=== PATIENT | female | born 1995 | race African-American/Black ===

== ENCOUNTER 2024-11-05 18:10 | Day surgery (SDC) | payer MEDICAID, SELFPAY ==
[2024-11-05] VITALS (8 sets, daily range): BP systolic 96–112; BP diastolic 66–76; PULSE 69–100; RESP 14–18; TEMP 36.4–36.7; O2SAT 98–100; BMI 23.8
--- NOTE | 2024-11-05 18:39 | XR_ITS ---
Examination: OB Transvaginal ultrasound of the pelvis, complete Technique: Transvaginal sonographic images pelvis performed using lawrence scale imaging Exam date and time: November 05, 2024 1927 hours INDICATIONS: Heavy vaginal bleeding beginning 2 days ago FINDINGS: Uterus 9.3 cm intrauterine gestational sac 1.8 cm corresponding to 6 weeks 5 days gestational age Yolk sac No pole, no cardiac activity Right ovary obscured by bowel gas Left ovary 3.7 cm arterial flow IMPRESSION: Empty intrauterine gestational sac corresponding to 6 weeks 5 days gestational age Recommend short term follow-up transvaginal pelvic sonography to exclude spontaneous in progress.
--- NOTE | 2024-11-05 18:45 | PD.EDVAGBL ---
ED OB Contraction Preg RMI/HPI General Chief complaint: Abdominal Pain Stated complaint: 10WK PREG AND IS HAVING MISSCARRAGE SENT BY OB FOR Time Seen by Provider: 11/05/24 18:38 Arrival date/time: 11/05/24 18:10 28F at approximately 10 weeks and with history of psych presents to ED with 2 days of heavy vaginal bleeding and pelvic pain. Patient was at [facility] yesterday where she was told she was having a miscarriage due to blighted ovum. Patient was seen by PCP Dr. Herman at [facility] who states patient needs D&C due to amount of bleeding, which is about 2-3 pads/hour. Limitations: no limitations Related Data Home Medications ?Medication ?Instructions ?Recorded ?Confirmed duloxetine 30 mg capsule,delayed 1 cap PO QAM 11/17/21 03/23/22 release gabapentin 300 mg capsule 1 cap PO TID 11/17/21 03/23/22 hydroxyzine pamoate 50 mg capsule 1 cap PO TID PRN Anxiety 11/17/21 03/23/22 trazodone 100 mg tablet 1 tab PO HS 11/17/21 03/23/22 Allergies Allergy/AdvReac Type Severity Reaction Status Date / Time No Known Allergies Allergy Verified 11/05/24 18:14 Review of Systems Review of Systems Systems Reviewed: All systems reviewed, normal except as documented Constitutional Constitutional: Reports system reviewed and no additional complaints, except as documented, Reports as per HPI, Reports chills, Reports fever(s) and Denies headache(s) ENT Ears, Nose, Mouth, and Throat: Denies disequilibrium and Denies headache(s) Cardiovascular Cardiovascular: Reports system reviewed and no additional complaints, except as documented, Denies chest pain and Denies dyspnea Respiratory Respiratory: Reports system reviewed and no additional complaints, except as documented, Denies cough and Denies dyspnea Gastrointestinal Gastrointestinal: Reports system reviewed and no additional complaints, except as documented, Reports as per HPI, Denies abdominal pain, Reports nausea and Reports vomiting Genitourinary Genitourinary: Reports as per HPI, Reports abnormal vaginal bleeding and Reports pelvic pain Neurologic Neurologic: Reports system reviewed and no additional complaints, except as documented, Denies confusion, Denies disequilibrium and Denies headache(s) Psychiatric Psychiatric: Denies confusion Past Medical History Past Medical History NEUROLOGIC: Positive Neurological Disorders, Seizures and Epilepsy CARDIAC: Negative Cardiac Disorders or Congestive Heart Failure RESPIRATORY: Negative Chronic Obstructive Pulmonary Disease (COPD) or Asthma GASTROINTESTINAL: Negative Gastrointestinal Disorders GENITOURINARY: Negative Genitourinary Disorders or Renal Disease REPRODUCTIVE: Positive Previous Pregnancies MUSCULOSKELETAL: Negative Musculoskeletal Disorders ENDOCRINE: Negative Endocrine Disorders, Diabetes Mellitus Type 1 or Diabetes Mellitus Type 2 HEMATOLOGIC: Negative Blood Disorders or Sickle Cell Disease PSYCHO/SOCIAL: Positive Depression and Anxiety OTHER HISTORY: Positive Hospitalization; Negative Autoimmune Disease, Down Syndrome, Developmental Delay, Shingles, Falls, Blood Transfusions or Anesthesia Reactions Family History FAMILY HISTORY: Positive Family Cancer Surgical History SURGICAL: Positive Section Social History SMOKING STATUS: Current every day smoker SECOND HAND EXPOSURE: Yes SUBSTANCE USE: does not use (patient claims she does not use drugs. ) ED Exam General Limitations: Present no limitations General appearance: Present alert Head Head exam: Present atraumatic Eye Eye exam: Present normal appearance, PERRL and EOMI ENT ENT exam: Present normal exam, normal oropharynx and mucous membranes moist Neck Neck exam: Present normal inspection, full ROM and trachea midline Chest Chest inspection: Present normal inspection and symmetric chest wall rise Respiratory Respiratory exam: Present normal lung sounds bilaterally Cardiovascular Cardiovascular exam: Present regular rate, normal rhythm and normal heart sounds Abdominal Exam Abdominal exam: Present soft and normal bowel sounds Extremities Exam Extremities exam: Present normal inspection and full ROM Back Exam Back exam: Present normal inspection and full ROM Neurological Exam Neurological exam: Present alert, oriented X3 and CN II-XII intact Psychiatric Psychiatric exam: Present normal affect and normal mood Skin Skin exam: Present warm, dry, intact and normal color Course Quality Measures none Orders Category Date Time Status Patient Condition Routine Admission 11/05/24 21:36 Ordered SDC [Place in Surgical Day Care] Routine Admission 11/05/24 21:37 Active Activity as Tolerated Routine Care 11/05/24 21:36 Ordered Bedside COVID-19 Antigen Test NOW Care 11/05/24 18:47 Active Bedside Influenza A&B Antigen Test NOW Care 11/05/24 18:47 Completed COVID-19 Screening Questionnaire NOW Care 11/05/24 21:34 Active Clip Operative Site as Needed X1 Care 11/05/24 21:36 Active Decision to Admit X1 Care 11/05/24 21:34 Active Initiate Warming Therapy NOW Care 11/05/24 21:36 Active Insert IV NOW Care 11/05/24 18:39 Active NPO NEEDED Care 11/05/24 21:36 Active NPO NOW Care 11/05/24 18:43 Active NPO NOW Care 11/05/24 21:36 Active Obtain Written Consent For: NOW Care 11/05/24 21:36 Active Consult to Obstetrics Stat Cons 11/05/24 21:07 Ordered Diet NPO (NOW) Diet 11/05/24 18:43 Completed Diet NPO (NOW) Diet 11/05/24 21:36 Active US OB transvaginal Stat Exams 11/05/24 18:39 Completed Beta HCG,Quantitative Stat Lab 11/05/24 19:04 Completed CBC Stat Lab 11/05/24 19:04 Completed CMP [Comprehensive Metabolic Panel] Stat Lab 11/05/24 19:04 Completed INR [Prothrombin Time with INR] Stat Lab 11/05/24 19:04 Completed Lactate (Lactic Acid) Stat Lab 11/05/24 19:04 Completed PTT [Partial Thromboplastin Time] Stat Lab 11/05/24 19:04 Completed Procalcitonin Stat Lab 11/05/24 19:04 Completed Type and Screen Stat Lab 11/05/24 19:04 Completed Urinalysis Stat Lab 11/05/24 19:00 Completed Urine Culture Stat Lab 11/05/24 19:00 Received Morphine Inj Med 11/05/24 18:39 Discontinued 5 mg IVP X1 ONE Ondansetron Inj [Zofran Inj] Med 11/05/24 18:39 Discontinued 4 mg IVP X1 ONE Ringers Lactated 1000 ml [Lactated Ringers] 1,000 ml Med 11/05/24 21:37 Ordered IV 125 mls/hr Sodium Chloride 0.9% 1000 ml [Ns] 1,000 ml Med 11/05/24 18:39 Discontinued IV 999 mls/hr Code Status Routine Oth 11/05/24 21:36 Ordered Vital Signs Vital signs: Vital Signs Temperature 98.1 F 11/05/24 18:27 Pulse Rate 100 11/05/24 18:27 Respiratory Rate 18 11/05/24 18:27 Blood Pressure 112/76 11/05/24 18:27 Pulse Oximetry (%) 99 11/05/24 18:27 Oxygen Delivery Method Room Air 11/05/24 18:27 O2 at 99% on RA and WNLs Vaginal Bleeding MDM Narrative MDM Narrative: 28F at approximately 10 weeks and with history of psych presents to ED with 2 days of heavy vaginal bleeding and pelvic pain. Patient was at [facility] yesterday where she was told she was having a miscarriage due to blighted ovum. Patient was seen by PCP Dr. Herman at [facility] who states patient needs D&C due to amount of bleeding, which is about 2-3 pads/hour. Patient also has some N/V and reports fevers/chills. Physical exam reveals patient who appears to be in pain. Patient is afebrile, calm, and alert. US empty gestational sac. HgB mildly low at 11.7. UA just blood. CMP unremarkable. Spoke to Dr. Herrera, who states patient will be admitted for surgery as patient does not want to go through miscarriage at home and would prefer the D&C now. Patient data External records reviewed:: [facility] previous records Clinical information provided by:: patient Social determinants that could affect healthcare access:: none Patient has the following chronic illnesses:: none How is presenting disease/condition affected by chronic disease/condition?: no chronic disease Evaluation data The following diagnostics were reviewed and interpreted by me:: lab results and radiology exam(s) Lab and/or radiology exams considered but not ordered:: ordered Interpretation Summary: above Medications / Prescriptions Medications or Prescriptions considered but not ordered:: ordered Medication administrations:: Medication Administration History Lactated Ringer's (Lactated Ringers) 1,000 mls @ 125 mls/hr IV .Q8H CARISA Stop: 12/05/24 21:36 Discontinued Medications Sodium Chloride (Ns) 1,000 mls @ 999 mls/hr IV .Q1H1M ONE Stop: 11/05/24 19:39 Last Infusion: 11/05/24 21:15 Dose: Infused Documented By: Admin: 11/05/24 20:14 Dose: 999 mls/hr Documented By: EF Morphine Sulfate (Morphine Sulf Inj 10 Mg/Ml Vial) 5 mg IVP X1 ONE Stop: 11/05/24 18:40 Last Admin: 11/05/24 20:14 Dose: 5 mg Documented By: EF Ondansetron HCl (Ondansetron Inj 2 Mg/Ml Inj 2 Ml) 4 mg IVP X1 ONE; Protocol Stop: 11/05/24 18:40 Last Admin: 11/05/24 20:14 Dose: 4 mg Documented By: EF above Consultations Consultation(s) initiated? (list below): Yes Diagnosis Vaginal Bleeding Differential Diagnosis: missed , threatened , dysfunctional uterine bleeding, menometrorrhagia, incomplete , ectopic without intrauterine and vaginal bleeding Most likely diagnosis given after review of the tests above:: incomplete miscarriage Admission Indicated Admission indicated?: not indicated Admission Request Was there a request for admission?: Yes Admission Attestation Admission request attestation: Discussed case with [Dr. Herrera] from OBGYN service regarding admission. Discussed patients ED course, exam findings, labs, and radiology results. The Surgeon [agrees] to accept the patient for admission. Disposition Plan Disposition Plan: Admit Discharge Plan Plan Patient Disposition: Other Care w/in Hosp (SDC/[facility]) Problem List Clinical Impression: Incomplete miscarriage
[2024-11-05 19:18] LABS: Lactate (Lactic Acid) 1.6 mMol/L (0.4-2.0)
[2024-11-05 19:22] LABS: Basophils % (Auto) 0 % (0-2.5); Eosinophils % (Auto) 0 % (0-10); Hematocrit 32.7 % (36.0-46.0); Hemoglobin 11.7 g/dL (12.0-16.0); Immature Granulocytes % (Auto) 0 % (0-0); Immature Granulocytes Auto 0.03 Thou/mm3 (0.00-0.00); Lymphocytes # (Auto) 2.6 Thou/mm3 (1.0-4.8); Lymphocytes % (Auto) 24 % (10-50); Mean Corpuscular HGB Conc 35.8 g/dl (31.0-37.0); Mean Corpuscular Hemoglobin 32.1 pg (25.0-35.0); Mean Corpuscular Volume 90 fL (80-100); Monocytes # (Auto) 0.5 Thou/mm3 (0.0-0.8); Monocytes % (Auto) 5 % (0-12); Neutrophils # (Auto) 7.5 Thou/mm3 (1.8-7.7); Neutrophils % (Auto) 70 % (37-80); Nucleated Red Blood Cell % 0 /100 WBC (0); Platelet Count 216 Thou/mm3 (140-440); RDW Standard Deviation 41.7 fL (36.4-46.3); Red Blood Count 3.65 Miln/mm3 (4.00-5.20); White Blood Count 10.8 Thou/mm3 (3.6-11.0)
[2024-11-05 19:30] LABS: Collection Type, Urine Clean Catch
[2024-11-05 19:42] LABS: Bilirubin,Urine Negative (Negative); Blood,Urine 2+ (Negative); Clarity,Urine Clear (Clear/Hazy); Color,Urine Yellow (Lt Yel-Yel); Glucose, Urine Negative (Negative); Ketones,Urine Negative (Negative); Leukocyte Esterase,Urine Negative (Negative); Nitrite,Urine Negative (Negative); Protein,Urine Negative (Neg - Trace); RBC,Urine 4 /hpf (0-3); Specific Gravity,Urine 1.027 (1.001-1.035); Squamous Epithelial Cell,Urine 4 /hpf (0-5); Urobilinogen,Urine Negative mg/dL (0.0-1.0); WBC,Urine 3 /hpf (0-5)
[2024-11-05 19:53] LABS: Alanine Aminotransferase 22 U/L (10-49); Albumin, Serum 4.7 gm/dL (3.5-5.0); Albumin/Globulin Ratio 2.2 (1.2-2.2); Alkaline Phosphatase 36 U/L (46-116); Anion Gap 10 (7-16); Aspartate Amino Transferase 26 U/L (0-34); BUN/Creatinine Ratio 10 Ratio (12-20); Bilirubin,Total 0.7 mg/dL (0.3-1.2); Blood Urea Nitrogen 8 mg/dL (9-23); Calcium 9.7 mg/dL (8.3-10.6); Calcium (Corrected) 9.7 mg/dL (8.5-10.1); Carbon Dioxide 24.8 mMol/L (20.0-31.0); Chloride 101 mMol/L (98-107); Creatinine (Component) 0.8 mg/dL (0.6-1.3); Estimated Creatinine Clearance 92.5 mL/min (>60); Globulin 2.1 gm/dL (2.3-3.5); Glucose 138 mg/dL (74-106); Osmolality,Calculated 272 (275-295); Potassium 4.1 mMol/L (3.4-5.1); Procalcitonin < 0.04 ng/ml (0.0-0.49); Sodium 136 mMol/L (136-145); Total Protein 6.8 gm/dL (5.7-8.2); eGFR > 60 See Note
[2024-11-05] MEDS: ONDANSETRON INJ 2 MG/ML INJ 2 ML 4 MG IVP (20:14)
[2024-11-05] MEDS: SODIUM CHLORIDE 0.9% 1000 ML 1,000 ML 999 ML IV (20:14)
[2024-11-05] MEDS: MORPHINE SULF INJ 10 MG/ML VIAL 5 MG IVP (20:14)
[2024-11-05 20:15] LABS: Beta HCG,Quantitative 31498 mIU/mL (<5.0)
[2024-11-05 21:08] LABS: Prothrombin Time 10.9 Seconds (9.0-12.2)
--- NOTE | 2024-11-05 21:50 | PD.GYNHP ---
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 MEEK is a 28 year old female who Presents with a failed , also known as a blighted ovum. She was seen in the [facility] ER yesterday and has come to the current hospital today for further evaluation and management. Ultrasound performed today showed a uterus measuring 9.3 centimeters with a gestational sac corresponding to 6 weeks and 5 days, but no pole was visible. The patient is experiencing symptoms consistent with an ongoing miscarriage. She has expressed a preference for surgical management, opting for a dilation and curettage (D&C) procedure to be performed tonight. She last ate around 5:30 PM, approximately 5 hours prior to the current consultation. Medical history includes an emergency room visit to [facility] yesterday. Surgical history includes a diagnostic laparoscopy converted to laparotomy [place] [address] Conley due to large intraperitoneal hemorrhage and adnexal torsions. Review of Systems Review of Systems Systems Reviewed: All systems reviewed, normal except as documented Meds Home Medications and Allergies Home Medications ?Medication ?Instructions ?Recorded ?Confirmed ?Type duloxetine 30 mg capsule,delayed 1 cap PO QAM 11/17/21 03/23/22 History release gabapentin 300 mg capsule 1 cap PO TID 11/17/21 03/23/22 History hydroxyzine pamoate 50 mg capsule 1 cap PO TID PRN Anxiety 11/17/21 03/23/22 History trazodone 100 mg tablet 1 tab PO HS 11/17/21 03/23/22 History Allergies Allergy/AdvReac Type Severity Reaction Status Date / Time No Known Allergies Allergy Verified 11/05/24 18:14 Exam - OFFBEARER SEWER PIPE Vital Signs Temp Pulse Resp BP Pulse Ox O2 Del Method 98.1 F 88 16 108/71 100 Room Air 11/05/24 18:27 11/05/24 21:05 11/05/24 21:05 11/05/24 21:05 11/05/24 21:05 11/05/24 21:05 Constitutional Constitutional: no acute distress Routine HEENT Exam Head: Present normocephalic and atraumatic Eye: Present EOMI and PERRL ENT: Present mucous membranes moist Routine Neck Exam Neck: Present supple and trachea midline Routine Respiratory Exam Respiratory: Present chest non-tender, lungs clear, normal breath sounds and no resp distress Routine Cardiovascular Exam Cardiovascular: Present RRR Routine Abdominal Exam Abdominal: Present soft and normoactive bowel sounds Routine Extremities Exam Extremities: Present full ROM Routine Skin Exam Skin: Present intact and dry Routine Neurological Exam Neurological: Present alert, oriented X3 and CN II-XII intact Routine Psychiatric Exam Psychiatric: Present normal affect and normal thought process OFFBEARER SEWER PIPE - Results Labs 11/05/24 19:04 11/05/24 19:04 Labs: Short CBC 11/05/24 Range/Units 19:04 WBC 10.8 (3.6-11.0) Thou/mm3 Hgb 11.7 L (12.0-16.0) g/dL Hct 32.7 L (36.0-46.0) % Plt Count 216 (140-440) Thou/mm3 BMP 11/05/24 19:04 Sodium 136 Potassium 4.1 Chloride 101 Carbon Dioxide 24.8 BUN 8 L Creatinine 0.8 Glucose 138 H Calcium 9.7 Liver Function 11/05/24 Range/Units 19:04 Total Bilirubin 0.7 (0.3-1.2) mg/dL AST 26 (0-34) U/L ALT 22 (10-49) U/L Alkaline Phosphatase 36 L (46-116) U/L Albumin 4.7 (3.5-5.0) gm/dL Urine 11/05/24 Range/Units 19:00 Urine Color Yellow (Lt Yel-Yel) Urine Clarity Clear (Clear/Hazy) Urine pH 6.0 (5.0-7.0) Ur Specific [place] 1.027 (1.001-1.035) Urine Protein Negative (Neg - Trace) Urine Glucose (UA) Negative (Negative) Assessment and Plan Assessment and plan (1) Blighted ovum and nonhydatidiform mole: Status: Acute Assessment and plan: Failed (Blighted Ovum): - Confirmed by ultrasound and blood tests - Gestational sac formed, but no pole present - Ultrasound shows uterus measuring 9.3 cm - Gestational sac corresponds to 6 weeks and 5 days - Beta hC,498 - Hemoglobin: 11.7 - Patient's body likely to expel or miscarry the over time Plan: - - Perform dilation and curettage (D&C) procedure tonight * Under general anesthesia * Vaginally with no external incisions or stitches - Provide post-operative pain medication for uterine cramping - Instruct patient to wait one month or until next menstrual cycle before attempting again - Discuss control options if desired Quality Measures Quality Measures none
[2024-11-05] MEDS: RINGERS LACTATED 1000 ML 1,000 ML 125 ML IV (21:52)
--- NOTE | 2024-11-05 22:36 | PD.GYNPROC ---
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 Identity was confirmed using two patient identifiers. The patient was positioned on the operating table, and general anesthesia was administered. She was then placed in the dorsal lithotomy position using Renato stirrups. The perineum was prepped and draped in the usual sterile fashion. A straight catheter was used to empty the bladder. A weighted speculum was placed in the posterior vaginal fornix, and a right-angle retractor was used to retract the anterior vaginal wall. An atraumatic grasper was used to gently grasp the anterior lip of the cervix, which was placed under traction. Cervical length from the external to internal os was assessed, and a uterine sound was used to measure uterine depth. The cervix was noted to be dilated to approximately 6 mm. A 6 mm suction cannula was introduced through the cervical os, and multiple gentle passes were performed until evacuation of all tissue and blood clots was complete. Endometrial grating was palpated, and the uterus was noted to have contracted appropriately. The suction cannula was removed, and a gentle curettage was performed using a standard curette. All instruments were then withdrawn. Uterine bleeding was minimal. The atraumatic grasper was removed from the cervix, which was visualized and found to be hemostatic. The speculum was removed from the vaginal canal. The patient was then cleaned, undraped, and taken out of the lithotomy position. General anesthesia was reversed, and the patient was transferred to the recovery room in stable and awake condition. The procedure was well tolerated. All instrument, sponge, and lap counts were correct ?2. Estimated blood loss (ml): 200 Complications: none Surgical staff Operation Date: 11/05/24 22:45 <No data on this case meets the specified criteria> Diagnosis Discharge Diagnosis (1) Blighted ovum and nonhydatidiform mole: Status: Acute (2) Incomplete miscarriage: Status: Acute Problem List Completed Was Problem List Reviewed/Reconciled?: Yes
--- NOTE | 2024-11-05 23:13 | SUR.PHASEI ---
Arrived to recovery bay 1 via [facility]. Report received from Dianne SANDERS and Dr. Mercer. Resting with eyes closed but responding to questions and commands appropriately. C/O abdominal cramping 11/12. Elsie pad in place C/D/I.
[2024-11-05] MEDS: ACETAMINOPHEN IVPB 1,000 MG/100 ML VIAL 250 MG IV (23:19)
--- NOTE | 2024-11-05 23:30 | SUR.PHASEII ---
Tolerating PO ice chips well. Conversing with staff. C/O abdominal cramping. Responding to questions and commands appropriately.
[2024-11-05] MEDS: fentaNYL CIT INJ 50 mCg/ML AMP 2ML 25 MCG IVP (23:37)
[2024-11-05] MEDS: HYDROmorphone INJ 2 MG/ML VIAL 0.4 MG IVP ×2 (23:42→23:50)
[2024-11-06] MEDS: MORPHINE SULF INJ 10 MG/ML VIAL 3 MG IVP (00:05)
[2024-11-06] MEDS: ONDANSETRON INJ 2 MG/ML INJ 2 ML 4 MG IVP (00:08)
[2024-11-06 00:10] VITALS: BP 105/73; PULSE 68; RESP 14; TEMP 36.6; O2SAT 100
== END 2024-11-06 00:20 | disposition home or self-care (01) ==
LOC: SERX 19:03 → S2EX 21:43
PROVIDERS: Physician Assistant; Emergency Provider Emergency Medicine; Visit Provider Obstetrics & Gynecology
PROC: (CPT 58120; principal; 2024-11-05 22:30)
DX: O03.4 Incomplete spontaneous abortion without complication (principal); O02.0 Blighted ovum and nonhydatidiform mole; Z3A.01 Less than 8 weeks gestation of pregnancy
CPT/HCPCS: 59812; 36415; 76817; 80053; 81001; 83605; 84145; 84702; 85025; 85610; 85730; 86850; 86900; 86901; 87086; 87400; 87811; 96361; 96374; 96375; 99285; A4217; J0131; J1171; J2270; J2405; J2704; J3010; J3490; J7030; J7120

== ENCOUNTER 2025-02-21 13:36 | Observation (INO) | payer MEDICAID, SELFPAY ==
[2025-02-21] VITALS (8 sets, daily range): BP systolic 95–106; BP diastolic 64–72; PULSE 66–107; RESP 18–88; TEMP 37.3–39.4; O2SAT 97–100; BMI 24.4
--- NOTE | 2025-02-21 14:16 | XR_ITS ---
Examination: CT brain head without contrast. 2-D sagittal coronal reconstructions Date and time of exam:February 21, 2025 1432 hours, comparison 03/04/2020 INDICATIONS: Severe headaches today CTDI: vol (mGy):45.9 DLP: (mGycm):1000 Technique: Multiple CT axial sections of the brain have been obtained, 5 mm slice thickness. Contrast has not been administered. 2-D sagittal, coronal reconstructions have been obtained Low dose protocols were performed. One or more of the following dose reduction techniques were used; automated exposure control, adjustment of the mA and/or KV according to patient size, use of iterative reconstruction technique. Findings: No significant ventricular enlargement. Intra-axial or extra-axial hemorrhage density is not seen. No mass effect or midline shift Basal cisterns are not remarkable. Fourth ventricle is midline. Cranial vault intact. Impression: Negative for acute hemorrhage, mass effect or midline shift Advise clinical correlation and follow-up accordingly
--- NOTE | 2025-02-21 14:17 | PD.EDRME ---
Rapid Medical Screening Exam RME Arrival date/time: 02/21/25 13:36 29-year-old female with no known medical history presents to the emergency room with a chief complaint of nausea, vomiting, 10 out of 10 headache x 2 days I have greeted and performed a focused initial assessment of this patient. A comprehensive ED assessment and evaluation of the patient, analysis of all test results, and completion of the medical decision making process will be conducted by additional ED providers. Chief Complaint: Headache Time Seen by Provider: 02/21/25 14:05 Vital signs reviewed by provider: Yes
[2025-02-21] MEDS: ACETAMINOPHEN 500 MG TABLET 1000 MG PO (14:46)
[2025-02-21] MEDS: ONDANSETRON ODT 4 MG TABRAP PO (14:47)
--- NOTE | 2025-02-21 14:47 | PD.EDHA ---
ED Headache RME/HPI General Chief Complaint: Headache Stated Complaint: SOB, HEADACHE, VOMITING Time Seen by Provider: 02/21/25 14:05 Arrival date/time: 02/21/25 13:36 RME / HPI RME / HPI Narrative: 29-year-old female with no known medical history presents to the emergency room with a chief complaint of nausea, vomiting, 10 out of 10 headache x 2 days. Patient also complaining of headache , neck pain, especially with flexion and extension. Denies any cough denies any sore throat denies any abdominal pain denies any dysuria denies any other complaints no medication was taken prior to ER visit. Patient denies any abdominal pain. In the triage patient was noted to be tachycardic and a fever 102. Sepsis alert was initiated right away. Related Data Home Medications ?Medication ?Instructions ?Recorded ?Confirmed duloxetine 30 mg capsule,delayed 1 cap PO QAM 11/17/21 02/21/25 release gabapentin 300 mg capsule 1 cap PO BID 11/17/21 02/21/25 hydroxyzine pamoate 50 mg capsule 1 cap PO TID PRN Anxiety 11/17/21 02/21/25 trazodone 100 mg tablet 1 tab PO HS 11/17/21 03/23/22 duloxetine 60 mg capsule,delayed 60 mg PO DAILY 02/21/25 02/21/25 release Allergies Allergy/AdvReac Type Severity Reaction Status Date / Time No Known Allergies Allergy Verified 02/21/25 13:39 Review of Systems Review of Systems Narrative Review of Systems: Review of system reviewed and within normal limits except mentioned in HPI ED Exam Narrative Physical exam: VITAL SIGNS: Reviewed. GENERAL APPEARANCE: Alert and interactive, follows commands, no acute distress, HEAD AND FACE: Non-traumatic. ENT: PERRL, pink conjunctivitis, eyelid no trauma, Mucous membrane moist. NECK: Supple, nontender, no nuchal rigidity. CHEST: No tenderness, no crepitus, no paradoxical movement, no retractions. LUNGS: Clear, well ventilated, symmetric, no rales, no wheezing, no ronchi, no stridor, good breath sounds bilaterally. HEART: Regular rate, regular rhythm, no murmur, no gallops. ABDOMEN: Soft, positive bowel sounds, nondistended, no guarding, nontender, no rebound, no masses, RECTAL: Deferred. GENITAL: Deferred. NEUROLOGICAL: Gross motor function intact sensory function intact, Appropriate for age. Positive Kernig sign bilateral, MUSCULOSKELETAL: low back nontender, full range of motion. EXTREMITIES: Nontender, full range of motion. SKIN: Color pink, dry, no rash, no lacerations, no abrasions, no contusions. LYMPHATICS: Deferred. Course Quality Measures none Orders Category Date Time Status Bedside COVID-19 Antigen Test NOW Care 02/21/25 14:23 Active Bedside Influenza A&B Antigen Test NOW Care 02/21/25 14:23 Completed COVID-19 Screening Questionnaire NOW Care 02/21/25 19:43 Active Decision to Admit X1 Care 02/21/25 19:43 Completed Obtain Written Consent For: .NOW Care 02/21/25 15:18 Active Consult to Neurology / Tele-Neurology Routine Cons 02/21/25 20:42 Active Diet Regular Diet 02/22/[address] head/brain wo con Stat Exams 02/21/25 14:16 Completed Amylase Stat Lab 02/21/25 15:00 Completed Blood Culture (Lab) Stat Lab 02/21/25 15:22 Received CBC Stat Lab 02/21/25 15:00 Completed CMP [Comprehensive Metabolic Panel] Stat Lab 02/21/25 15:00 Completed CSF Culture and Gram Stain Stat Lab 02/21/25 17:36 Results Cell Count w Diff, CSF Stat Lab 02/21/25 17:36 Completed Drug Screen,Urine Stat Lab 02/21/25 16:37 Completed Glucose,CSF Stat Lab 02/21/25 17:36 Completed HCG Qualitative,Urine Stat Lab 02/21/25 16:37 Completed HCG,Qualitative Serum Stat Lab 02/21/25 15:00 Completed Lactate (Lactic Acid) Stat Lab 02/21/25 15:00 Completed Procalcitonin Stat Lab 02/21/25 15:00 Completed Protein Total,CSF Stat Lab 02/21/25 17:36 Completed Strep A Rapid Stat Lab 02/21/25 17:35 Completed UA, C/S IF [Urinalysis, C/S if Indicated] Stat Lab 02/21/25 16:37 Completed Acetaminophen Tab [Tylenol ES Tab] Med 02/21/25 14:23 Discontinued 1,000 mg PO X1 ONE Acyclovir Inj [Zovirax Inj] 667 mg Med 02/21/25 22:00 Active Sodium Chloride 0.9% [Ns] 100 ml IV Q8HR Ketorolac [Toradol] Med 02/21/25 20:41 Stop Req 10 mg PO X1 ONE Lidocaine 1% 20 ml [Xylocaine 1% 20 ML] Med 02/21/25 15:59 Discontinued 20 ml INFL X1 ONE Metoclopramide Inj [Reglan Inj] Med 02/21/25 22:00 Active 2.5 mg IVP Q8HR Morphine* Inj Med 02/21/25 15:27 Discontinued 4 mg IVP X1 ONE Ondansetron Odt [Zofran Odt] Med 02/21/25 14:17 Discontinued 4 mg PO X1 ONE Ringers Lactated 1000 ml [Lactated Ringers] 1,000 ml Med 02/21/25 14:45 Discontinued IV 999 mls/hr SUMAtriptan [Imitrex] Med 02/21/25 20:44 Discontinued 50 mg PO X1 ONE Sodium Chloride 0.9% 1000 ml [Ns] 1,000 ml Med 02/21/25 20:45 Active IV 100 mls/hr Sodium Chloride 0.9% 1000 ml [Ns] 2,000 ml Med 02/21/25 20:41 Active IV 999 mls/hr cefTRIAXone [Rocephin] 2 gm Med 02/21/25 15:17 Discontinued SODIUM CHLORIDE 0.9% (Popper) [Ns 0.9% (P)] 50 ml IV X1 Oxygen Delivery NOW RT 02/21/25 20:44 Active Vital Signs Vital signs: Vital Signs Temperature 102.9 F H 02/21/25 14:19 Pulse Rate 107 H 02/21/25 14:19 Respiratory Rate 18 02/21/25 14:19 Blood Pressure 101/67 02/21/25 14:19 Pulse Oximetry (%) 99 02/21/25 14:19 Oxygen Delivery Method Room Air 02/21/25 14:19 Headache MDM Narrative MDM Narrative:: 29-year-old female with no known medical history presents to the emergency room with a chief complaint of nausea, vomiting, 10 out of 10 headache x 2 days. Patient also complaining of headache , neck pain, especially with flexion and extension. Denies any cough denies any sore throat denies any abdominal pain denies any dysuria denies any other complaints no medication was taken prior to ER visit. Patient denies any abdominal pain. In the triage patient was noted to be tachycardic and a fever 102. Sepsis alert was initiated right away. Patient tested positive for Kernig sign, lumbar tap was done by ER resident. See his procedure notes. Laboratory workup all came back unremarkable. I did not notice any leukocytosis. Urinalysis no UTI since it is contaminated. CSF total protein was noted to be 50 mg per DL. CSF glucose is normal WBC count 16%. Negative for strep. CT scan of the head also came back unremarkable. Patient was given ceftriaxone 1 g IV. Plan of care discussed with the patient, including admission for further workup regarding possible meningitis. Patient agrees with the plan Spoke with hospitalist, who admitted the patient. Patient data External records reviewed:: None Clinical information provided by:: none Social determinants that could affect healthcare access:: none Patient has the following chronic illnesses:: None How is presenting disease/condition affected by chronic disease/condition?: no chronic disease Evaluation data The following diagnostics were reviewed and interpreted by me:: lab results and radiology exam(s) Lab and/or radiology exams considered but not ordered:: None Interpretation Summary: See results MDM Medications / Prescriptions Medications or Prescriptions considered but not ordered:: None Medication administrations:: Medication Administration History Acetaminophen (Acetaminophen 325 Mg Tablet) 650 mg PO Q6H PRN PRN Reason: PAIN SCALE 1-3 (mild Stop: 03/23/25 20:45 Acetaminophen (Acetaminophen 325 Mg Tablet) 650 mg PO Q6H PRN PRN Reason: Fever >100.4 Stop: 03/23/25 20:45 Hydrocodone Bitart/Acetaminophen (Hydrocodone/Apap 10/325 Tab) 1 tab PO Q4HR PRN PRN Reason: PAIN SCALE 7-10 (Severe Stop: 02/26/25 20:45 Duloxetine HCl (Duloxetine Hcl 30 Mg Capsule) 30 mg PO QAM CARISA Stop: 03/24/25 08:59 Gabapentin (Gabapentin 300 Mg Capsule) 300 mg PO BID CARISA Stop: 03/24/25 08:59 Sodium Chloride (Ns) 1,000 mls @ 100 mls/hr IV .Q10H CARISA Stop: 03/23/25 20:44 Last Admin: 02/21/25 21:07 Dose: 100 mls/hr Documented By: Sodium Chloride (Ns) 2,000 mls @ 999 mls/hr IV .Q2H1M ONE Stop: 02/21/25 22:41 Last Admin: 02/21/25 21:08 Dose: 999 mls/hr Documented By: ZAYRA Acyclovir Sodium 667 mg/ (Sodium Chloride) 113.34 mls @ 100 mls/hr IV Q8HR [facility] Stop: 02/28/25 21:59 Metoclopramide HCl (Metoclopramide Inj 5 Mg/Ml Vial 2 Ml) 2.5 mg IVP Q8HR CARISA; Protocol Stop: 03/23/25 21:59 Ondansetron HCl (Ondansetron Inj 2 Mg/Ml Inj 2 Ml) 4 mg IVP Q6H PRN; Protocol PRN Reason: NAUSEA OR VOMITING Stop: 03/23/25 20:45 Last Admin: 02/21/25 21:11 Dose: 4 mg Documented By: ZAYRA Oxycodone/Acetaminophen (Oxycodone/Apap 5/325 Tablet) 1 tab PO Q6H PRN PRN Reason: PAIN SCALE 4-6 (Moderate Stop: 02/26/25 20:45 Pantoprazole Sodium (Pantoprazole Inj 40 Mg Vial) 40 mg IVP QDAY [facility] Stop: 03/24/25 08:59 Sumatriptan Succinate (Sumatriptan 25 Mg Tablet) 50 mg PO Q2HR PRN PRN Reason: HEADACHE (MIGRAINE) Stop: 03/23/25 23:00 Trazodone HCl (Trazodone Hcl 50 Mg Tablet) 50 mg PO HS [facility] Stop: 03/24/25 20:59 Discontinued Medications Acetaminophen (Acetaminophen 500 Mg Tablet) 1,000 mg PO X1 ONE Stop: 02/21/25 14:24 Last Admin: 02/21/25 14:46 Dose: 1,000 mg Documented By: RENÉ Lactated Ringer's (Lactated Ringers) 1,000 mls @ 999 mls/hr IV .Q1H1M ONE Stop: 02/21/25 15:45 Last Infusion: 02/21/25 15:55 Dose: Infused Documented By: Admin: 02/21/25 14:54 Dose: 999 mls/hr Documented By: EF Ceftriaxone Sodium 2 gm/ (Sodium Chloride) 50 mls @ 100 mls/hr IV X1 ONE Stop: 02/21/25 15:46 Last Infusion: 02/21/25 15:55 Dose: Infused Documented By: Admin: 02/21/25 15:25 Dose: 100 mls/hr Documented By: EF Ketorolac Tromethamine (Ketorolac 10 Mg Tablet) 10 mg PO X1 ONE Stop: 02/21/25 20:42 Ketorolac Tromethamine (Ketorolac Inj 30 Mg/Ml Vial) 15 mg IVP X1 ONE Stop: 02/21/25 21:16 Last Admin: 02/21/25 21:12 Dose: 15 mg Documented By: ZAYRA Lidocaine HCl (Lidocaine Hcl 1% 20 Ml Vial) 20 ml INFL X1 ONE Stop: 02/21/25 16:00 Last Admin: 02/21/25 16:19 Dose: 20 ml Documented By: EF Morphine Sulfate (Morphine Sulf Inj 4 Mg/Ml Vial) 4 mg IVP X1 ONE Stop: 02/21/25 15:28 Last Admin: 02/21/25 16:18 Dose: 4 mg Documented By: EF Ondansetron HCl (Ondansetron Odt 4 Mg Tabrap) 4 mg PO X1 ONE; Protocol Stop: 02/21/25 14:18 Last Admin: 02/21/25 14:47 Dose: 4 mg Documented By: DB Sumatriptan Succinate (Sumatriptan 25 Mg Tablet) 50 mg PO X1 ONE Stop: 02/21/25 20:45 Last Admin: 02/21/25 21:06 Dose: 50 mg Documented By: ZAYRA See MDM Consultations Consultation(s) initiated? (list below): No Diagnosis Differential diagnosis headache: migraine, headache and meningitis Most likely diagnosis given after review of the tests above:: Suspect meningitis, fever, Admission Indicated Admission indicated?: indicated Admission Request Was there a request for admission?: Yes Admission Attestation Admission request attestation: Discussed case with Hospitalist service regarding admission. Discussed patients ED course, exam findings, labs, and radiology results. The Hospitalist [agrees to accept the patient for admission. Disposition Plan Disposition Plan: Admit Discharge Plan Plan Patient Disposition: Other Care w/in Hosp ([facility]) Problem List Clinical Impression: Meningitis
[2025-02-21] MEDS: RINGERS LACTATED 1000 ML 1,000 ML 999 ML IV (14:54)
[2025-02-21 15:07] LABS: Lactate (Lactic Acid) 1.4 mMol/L (0.4-2.0)
[2025-02-21 15:08] LABS: Basophils # (Auto) 0.0 Thou/mm3 (0.0-0.2); Basophils % (Auto) 0 % (0-2.5); Eosinophils # (Auto) 0.0 Thou/mm3 (0.0-0.5); Eosinophils % (Auto) 0 % (0-10); Hematocrit 39.5 % (36.0-46.0); Hemoglobin 13.6 g/dL (12.0-16.0); Immature Granulocytes Auto 0.01 Thou/mm3 (0.00-0.00); Lymphocytes # (Auto) 2.0 Thou/mm3 (1.0-4.8); Lymphocytes % (Auto) 25 % (10-50); Mean Corpuscular HGB Conc 34.4 g/dl (31.0-37.0); Mean Corpuscular Hemoglobin 30.4 pg (25.0-35.0); Mean Corpuscular Volume 88 fL (80-100); Monocytes # (Auto) 0.5 Thou/mm3 (0.0-0.8); Monocytes % (Auto) 6 % (0-12); Neutrophils # (Auto) 5.5 Thou/mm3 (1.8-7.7); Neutrophils % (Auto) 69 % (37-80); Nucleated Red Blood Cell # 0.00 Thou/mm3 (0.00-0.00); Nucleated Red Blood Cell % 0 /100 WBC (0); Platelet Count 213 Thou/mm3 (140-440); RDW Standard Deviation 43.2 fL (36.4-46.3); Red Blood Count 4.48 Miln/mm3 (4.00-5.20); White Blood Count 8.1 Thou/mm3 (3.6-11.0)
[2025-02-21] MEDS: cefTRIAXone 2 GM in SODIUM CHLORIDE 0.9% (Popper) 50 ML IV (15:25)
[2025-02-21 15:39] LABS: Alanine Aminotransferase < 7 U/L (10-49); Albumin, Serum 4.9 gm/dL (3.5-5.0); Albumin/Globulin Ratio 2.0 (1.2-2.2); Alkaline Phosphatase 51 U/L (46-116); Amylase 63 U/L (30-118); Anion Gap 14 (7-16); Aspartate Amino Transferase 17 U/L (0-34); BUN/Creatinine Ratio 10 Ratio (12-20); Bilirubin,Total 0.6 mg/dL (0.3-1.2); Blood Urea Nitrogen 10 mg/dL (9-23); Calcium 9.7 mg/dL (8.3-10.6); Calcium (Corrected) 9.7 mg/dL (8.5-10.1); Carbon Dioxide 21.4 mMol/L (20.0-31.0); Chloride 104 mMol/L (98-107); Creatinine (Component) 1.0 mg/dL (0.6-1.3); Estimated Creatinine Clearance 73.3 mL/min (>60); Globulin 2.4 gm/dL (2.3-3.5); Glucose 88 mg/dL (74-106); Osmolality,Calculated 275 (275-295); Potassium 3.6 mMol/L (3.4-5.1); Procalcitonin 0.05 ng/ml (0.0-0.49); Sodium 139 mMol/L (136-145); Total Protein 7.3 gm/dL (5.7-8.2); eGFR > 60 See Note
[2025-02-21] MEDS: MORPHINE SULF INJ 4 MG/ML VIAL IVP (16:18)
[2025-02-21] MEDS: LIDOCAINE HCL 1% 20 ML VIAL INFL (16:19)
[2025-02-21 16:40] LABS: Collection Type, Urine Clean Catch
[2025-02-21 16:41] LABS: HCG,Qualitative Serum Negative
[2025-02-21 16:44] LABS: HCG Qualitative,Urine Negative
[2025-02-21 16:55] LABS: Bacteria,Urine 3+; Bilirubin,Urine Negative (Negative); Blood,Urine Negative (Negative); Color,Urine Yellow (Lt Yel-Yel); Culture Indicated,Urine Contaminated; Glucose, Urine Negative (Negative); Hyaline Casts,Urine < 1 /hpf (0-1); Ketones,Urine 4+ (Negative); Leukocyte Esterase,Urine Positive (Negative); Nitrite,Urine Negative (Negative); PH,Urine 6.0 (5.0-7.0); Protein,Urine 1+ (Neg - Trace); RBC,Urine 9 /hpf (0-3); Specific Gravity,Urine 1.029 (1.001-1.035); Squamous Epithelial Cell,Urine 13 /hpf (0-5); Urobilinogen,Urine Negative mg/dL (0.0-1.0); WBC,Urine 13 /hpf (0-5)
[2025-02-21 16:58] LABS: Clarity,Urine Hazy (Clear/Hazy)
[2025-02-21 17:04] LABS: Amphetamine/Methamp Scrn,U Negative (Negative); Barbiturate Screen,Urine Negative (Negative); Benzodiazepines Screen,Urine Negative (Negative); Benzoylecgonine Screen, Ur Negative (Negative); Fentanyl Screen,Urine Negative (Negative); Opiate Screen,Urine Negative (Negative); THC Screen,Urine Positive (Negative)
[2025-02-21 18:07] LABS: Glucose,CSF 51 mg/dL (40-70); Protein Total,CSF 50 mg/dL (8-32)
[2025-02-21 18:13] LABS: Strep A Rapid Negative (Negative)
[2025-02-21 18:21] LABS: CSF Mononuclear 84 %; CSF White Blood Cell 25 /cmm
[2025-02-21 18:22] LABS: CSF Color Colorless (Colorless)
--- NOTE | 2025-02-21 18:22 | PD.RESPROC ---
PROCEDURES: Procedure Date / Time 02/21/25 0071 Lumbar Puncture Indication(s): Patient presenting with fever, headache, photophobia, concern for meningitis. Increased IOP ruled out with CT head. Informed consent obtained: from patient Time out done, and the following verified: correct patient, side and site, procedure and patient position Patient position: left lateral decubitus Skin prep: Povidone-Iodine 1% Local anesthetic used: Lidocaine 1% Amount of anesthesia used (mL): 3 Interspace used: L4-L5 Fluid initially obtained: bloody EBL(ml): 1 Complications: none
[2025-02-21 18:27] LABS: CSF Cell Count Tube # Tube # 4; CSF Red Blood Cell 3 /cmm
[2025-02-21 18:49] LABS: CSF Polynuclear WBC 16 %; CSF, Appearance Clear (Clear)
[2025-02-21] MEDS: SODIUM CHLORIDE 0.9% 1000 ML 1,000 ML 100 ML IV (21:07)
[2025-02-21] MEDS: SODIUM CHLORIDE 0.9% 1000 ML 2,000 ML 999 ML IV (21:08)
[2025-02-21] MEDS: ONDANSETRON INJ 2 MG/ML INJ 2 ML 4 MG IVP (21:11)
[2025-02-21] MEDS: KETOROLAC INJ 30 MG/ML VIAL 15 MG IVP (21:12)
--- NOTE | 2025-02-21 22:05 | PC.NURSE ---
ACYCLOVIR PREMIX BAGS X2 WAS GIVEN TO EUGENE SANDERS
[2025-02-21] MEDS: GABAPENTIN 300 MG CAPSULE PO (22:27)
[2025-02-21] MEDS: METOCLOPRAMIDE INJ 5 MG/ML VIAL 2 ML 2.5 MG IVP (22:28)
[2025-02-21] MEDS: ACYCLOVIR IV (22:31)
[2025-02-21] MEDS: SODIUM CHLORIDE 0.9% IV (22:31)
--- NOTE | 2025-02-21 22:35 | PD.RESHP ---
Documentation for date of: 02/21/25 HPI History of Present Illness Chief complaint: Headache, Neck Pain History of present illness: Patient is a 29 year old female with past medical history of depression, anxiety who presented to the ED with 10/10 headache, neck pain and eye sensitivity to light. Patient states this has been going on for 2 days and has had associated nausea, vomiting and fever. Patient states that she has never had this before and that the neck pain is worse with flexion of the neck. Patient endorses R frontal headache, history of migraines. Patient states she chipped/knocked her tooth out and has had some discomfort in that area radiating to R cheek. Patient denies chest pain, cough, shortness of breath, abdominal pain. Past Medical History: above Surgical History: D&C, , right salpingo-oophorectomy, Social History: 2 years vaping, marijuana, alcohol socially, no other rec drugs Current Medications: gabapentin 300 mg bid, duloxetine 60 mg x1/day, trazadone 1/day Allergies: No known drug allergies ED Course: -Initial vitals were 102.9 F, 74 HR, 18 RR, 101/67 BP, 99%O2 RA -Labs significant for UA 4+ ketones, 3+ bacteria, L.E. pos, 13 squamous cells, 13 wbc, 9 rbc; Marijuana + utox; -Imaging included Head CT: Negative for acute hemorrhage, mass effect or midline shift Blood x2 and CSF cultures taken -In the ED, patient was given tylenol, zofran, 1 L LR IV bolus, Rocephin 2 gm x1, morphine 4 mg x1, lidocaine, sumatriptan 50 mg x1, NS IV 2L bolus, ketorolac, gabapentin 300 mg po bid, trazodone 50 mg po hs, metoclopramide 2.5 mg IV q8hr, acyclovir 667 mg IV q8hr, norco q4hr prn. -Patient was admitted for meningitis evaluation and management Review of Systems Review of systems otherwise negative except what is mentioned above. Exam Vital Signs Temp Pulse Resp BP Pulse Ox O2 Del Method O2 Flow Rate 100.6 F H 74 18 102/72 98 Room Air 2 02/21/25 21:12 02/21/25 21:42 02/21/25 21:42 02/21/25 20:33 02/21/25 21:42 02/21/25 20:33 02/21/25 21:42 Narrative Exam General: Shivering; A&Ox3 Skin: Warm, dry, intact, no obvious rash. HENT: Positive Nuchal rigitidy & Brudzinski, negative Kernig's sign; NCAT, EOMI, not icteric. External ears normal. No rhinorrhea. Moist mucous membranes Cardiovascular: Regular rate and rhythm, no murmur, +S1/S2. Respiratory: Lungs CTAB GI: Soft, nontender, non-distended. No guarding or rebound tenderness. Extremities: no edema, no cyanosis, no clubbing. Extremity pulses present Neuro: No focal deficits observed. Conversant, moving all extremities. No overt cerebellar signs/incoordination. Psychiatric: Cooperative, appropriate affect. Results: Labs 02/22/25 05:15 02/22/25 05:15 Labs: Short CBC 02/21/25 Range/Units 15:00 WBC 8.1 (3.6-11.0) Thou/mm3 Hgb 13.6 (12.0-16.0) g/dL Hct 39.5 (36.0-46.0) % Plt Count 213 (140-440) Thou/mm3 BMP 02/21/25 15:00 Sodium 139 Potassium 3.6 Chloride 104 Carbon Dioxide 21.4 BUN 10 Creatinine 1.0 Glucose 88 Calcium 9.7 Liver Function 02/21/25 Range/Units 15:00 Total Bilirubin 0.6 (0.3-1.2) mg/dL AST 17 (0-34) U/L ALT < 7 L (10-49) U/L Alkaline Phosphatase 51 (46-116) U/L Albumin 4.9 (3.5-5.0) gm/dL Urine 02/21/25 Range/Units 16:37 Urine Color Yellow (Lt Yel-Yel) Urine Clarity Hazy (Clear/Hazy) Urine pH 6.0 (5.0-7.0) Ur Specific Umpire 1.029 (1.001-1.035) Urine Protein 1+ A (Neg - Trace) Urine Glucose (UA) Negative (Negative) Quality Measures Quality Measures none Medications Home Medications and Allergies Home Medications ?Medication ?Instructions ?Recorded ?Confirmed ?Type duloxetine 30 mg capsule,delayed 1 cap PO QAM 11/17/21 02/21/25 History release gabapentin 300 mg capsule 1 cap PO BID 11/17/21 02/21/25 History hydroxyzine pamoate 50 mg capsule 1 cap PO TID PRN Anxiety 11/17/21 02/21/25 History trazodone 100 mg tablet 50 mg PO HS 11/17/21 02/22/25 History duloxetine 60 mg capsule,delayed 60 mg PO DAILY 02/21/25 02/21/25 History release Allergies Allergy/AdvReac Type Severity Reaction Status Date / Time No Known Allergies Allergy Verified 02/21/25 13:39 Visit Medications Acetaminophen (Acetaminophen 325 Mg Tablet) 650 mg PO Q6H PRN PRN Reason: PAIN SCALE 1-3 (mild Stop: 03/23/25 20:45 Acetaminophen (Acetaminophen 325 Mg Tablet) 650 mg PO Q6H PRN PRN Reason: Fever >100.4 Stop: 03/23/25 20:45 Hydrocodone Bitart/Acetaminophen (Hydrocodone/Apap 10/325 Tab) 1 tab PO Q4HR PRN PRN Reason: PAIN SCALE 7-10 (Severe Stop: 02/26/25 20:45 Duloxetine HCl (Duloxetine Hcl 30 Mg Capsule) 30 mg PO QAM CARISA Stop: 03/24/25 08:59 Gabapentin (Gabapentin 300 Mg Capsule) 300 mg PO BID [facility] Stop: 03/23/25 22:19 Last Admin: 02/21/25 22:27 Dose: 300 mg Sodium Chloride (Ns) 1,000 mls @ 100 mls/hr IV .Q10H [facility] Stop: 03/23/25 20:44 Last Admin: 02/21/25 21:07 Dose: 100 mls/hr Sodium Chloride (Ns) 2,000 mls @ 999 mls/hr IV .Q2H1M ONE Stop: 02/21/25 22:41 Last Admin: 02/21/25 21:08 Dose: 999 mls/hr Acyclovir Sodium 667 mg/ (Sodium Chloride) 113.34 mls @ 100 mls/hr IV Q8HR [facility] Stop: 02/28/25 21:59 Last Admin: 02/21/25 22:31 Dose: 100 mls/hr Metoclopramide HCl (Metoclopramide Inj 5 Mg/Ml Vial 2 Ml) 2.5 mg IVP Q8HR CARISA; Protocol Stop: 03/23/25 21:59 Last Admin: 02/21/25 22:28 Dose: 2.5 mg Ondansetron HCl (Ondansetron Inj 2 Mg/Ml Inj 2 Ml) 4 mg IVP Q6H PRN; Protocol PRN Reason: NAUSEA OR VOMITING Stop: 03/23/25 20:45 Last Admin: 02/21/25 21:11 Dose: 4 mg Oxycodone/Acetaminophen (Oxycodone/Apap 5/325 Tablet) 1 tab PO Q6H PRN PRN Reason: PAIN SCALE 4-6 (Moderate Stop: 02/26/25 20:45 Pantoprazole Sodium (Pantoprazole Inj 40 Mg Vial) 40 mg IVP QDAY [facility] Stop: 03/24/25 08:59 Sumatriptan Succinate (Sumatriptan 25 Mg Tablet) 50 mg PO Q2HR PRN PRN Reason: HEADACHE (MIGRAINE) Stop: 03/23/25 23:00 Trazodone HCl (Trazodone Hcl 50 Mg Tablet) 50 mg PO HS CARISA Stop: 03/23/25 22:19 Last Admin: 02/21/25 22:27 Dose: 50 mg Discontinued Medications Acetaminophen (Acetaminophen 500 Mg Tablet) 1,000 mg PO X1 ONE Stop: 02/21/25 14:24 Last Admin: 02/21/25 14:46 Dose: 1,000 mg Gabapentin (Gabapentin 300 Mg Capsule) 300 mg PO BID CARISA Stop: 03/24/25 08:59 Lactated Ringer's (Lactated Ringers) 1,000 mls @ 999 mls/hr IV .Q1H1M ONE Stop: 02/21/25 15:45 Last Infusion: 02/21/25 15:55 Dose: Infused Ceftriaxone Sodium 2 gm/ (Sodium Chloride) 50 mls @ 100 mls/hr IV X1 ONE Stop: 02/21/25 15:46 Last Infusion: 02/21/25 15:55 Dose: Infused Ketorolac Tromethamine (Ketorolac 10 Mg Tablet) 10 mg PO X1 ONE Stop: 02/21/25 20:42 Ketorolac Tromethamine (Ketorolac Inj 30 Mg/Ml Vial) 15 mg IVP X1 ONE Stop: 02/21/25 21:16 Last Admin: 02/21/25 21:12 Dose: 15 mg Lidocaine HCl (Lidocaine Hcl 1% 20 Ml Vial) 20 ml INFL X1 ONE Stop: 02/21/25 16:00 Last Admin: 02/21/25 16:19 Dose: 20 ml Morphine Sulfate (Morphine Sulf Inj 4 Mg/Ml Vial) 4 mg IVP X1 ONE Stop: 02/21/25 15:28 Last Admin: 02/21/25 16:18 Dose: 4 mg Ondansetron HCl (Ondansetron Odt 4 Mg Tabrap) 4 mg PO X1 ONE; Protocol Stop: 02/21/25 14:18 Last Admin: 02/21/25 14:47 Dose: 4 mg Sumatriptan Succinate (Sumatriptan 25 Mg Tablet) 50 mg PO X1 ONE Stop: 02/21/25 20:45 Last Admin: 02/21/25 21:06 Dose: 50 mg Trazodone HCl (Trazodone Hcl 50 Mg Tablet) 50 mg PO HS CARISA Stop: 03/24/25 20:59 Assessment & Plan Plan Patient is a 29 year old female with past medical history of depression, anxiety who presented to the ED with 10/10 headache, neck pain and eye sensitivity to light. Patient was admitted for meningitis evaluation and management. #meningitis, possibly viral #Migraine headache Possibly due to meningitis; viral, less likely bacterial given CSF showing, vs migraine. Possibly due to UTI given UA vs tooth infection. Presented with Fever, tachycardia, Positive Nuchal rigidity & Brudzinski, negative Kernig's sign. No white count; LP CSF findings significant only for elevated protein of 50. -Started Acyclovir 667 mg IV q8hr per neurology recommendations -Patient given adequate hydration prior to Acyclovir initiation and started on maintenence IV -Blood x2 and CSF cultures taken, f/u -F/U CSF HSV cultures ? continue IVF maint (given 2L NS bolus) #headache Possibly due to meningitis vs chronic migraines Patient has history of migraines Given Sumatriptan 50 mg x1 -scheduled sumatriptan 50 mg po qd prn -given oxygen for headache #depression #anxiety home meds of duloxetine 60 mg po qd, trazodone 1 tab qd -resumed home meds Hospital Management: Disposition: Med Surg Diet: Regular GI Prophylaxis: protonix Bowel Prophylaxis: n/a DVT Prophylaxis: none CODE STATUS: FULL CODE Patient plan of care was discussed with the attending physician, Dr. Rivas & senior resident Dr. Justyna Sandy MD PGY-1 Attending Provider Attestation/Addendum After examination of the patient and review of the clinical data I feel that this patient needs admission to the hospital for further treatment/evaluation. Plan of care discussed with patient and is in agreement. I Marlena Rivas MD, attest that I was physically present for rosales portions of evaluation, and examined patient, labs and imagings and plan of care were discussed with IM residents team, and I agree with the findings and plans documented above.
[2025-02-22] VITALS (12 sets, daily range): BP systolic 94–126; BP diastolic 65–82; PULSE 70–90; RESP 14–97; TEMP 37.1–37.4; O2SAT 94–97; BMI 24.9
[2025-02-22] MEDS: METOCLOPRAMIDE INJ 5 MG/ML VIAL 2 ML 2.5 MG IVP ×3 (05:29→21:34)
[2025-02-22] MEDS: SODIUM CHLORIDE 0.9% IV ×3 (05:32→21:34)
[2025-02-22] MEDS: ACYCLOVIR IV ×3 (05:32→21:34)
[2025-02-22 05:37] LABS: Basophils # (Auto) 0.0 Thou/mm3 (0.0-0.2); Basophils % (Auto) 0 % (0-2.5); Eosinophils # (Auto) 0.0 Thou/mm3 (0.0-0.5); Eosinophils % (Auto) 0 % (0-10); Hematocrit 32.7 % (36.0-46.0); Hemoglobin 11.1 g/dL (12.0-16.0); Immature Granulocytes Auto 0.01 Thou/mm3 (0.00-0.00); Lymphocytes # (Auto) 3.3 Thou/mm3 (1.0-4.8); Lymphocytes % (Auto) 57 % (10-50); Mean Corpuscular HGB Conc 33.9 g/dl (31.0-37.0); Mean Corpuscular Hemoglobin 30.4 pg (25.0-35.0); Mean Corpuscular Volume 90 fL (80-100); Monocytes # (Auto) 0.7 Thou/mm3 (0.0-0.8); Monocytes % (Auto) 12 % (0-12); Neutrophils # (Auto) 1.7 Thou/mm3 (1.8-7.7); Neutrophils % (Auto) 30 % (37-80); Nucleated Red Blood Cell # 0.00 Thou/mm3 (0.00-0.00); Nucleated Red Blood Cell % 0 /100 WBC (0); Platelet Count 167 Thou/mm3 (140-440); RDW Standard Deviation 44.4 fL (36.4-46.3); Red Blood Count 3.65 Miln/mm3 (4.00-5.20); White Blood Count 5.7 Thou/mm3 (3.6-11.0)
[2025-02-22 05:46] LABS: Sed Rate (ESR) 9 mm/hr (0-20)
[2025-02-22 06:12] LABS: Anion Gap 7 (7-16); BUN/Creatinine Ratio 6 Ratio (12-20); Blood Urea Nitrogen 5 mg/dL (9-23); Calcium 7.9 mg/dL (8.3-10.6); Carbon Dioxide 23.5 mMol/L (20.0-31.0); Chloride 111 mMol/L (98-107); Creatinine (Component) 0.9 mg/dL (0.6-1.3); Estimated Creatinine Clearance 81.5 mL/min (>60); Glucose 85 mg/dL (74-106); Magnesium 1.6 mg/dL (1.6-2.6); Osmolality,Calculated 277 (275-295); Phosphorous 2.9 mg/dL (2.4-5.1); Potassium 3.9 mMol/L (3.4-5.1); Sodium 141 mMol/L (136-145); eGFR > 60 See Note
--- NOTE | 2025-02-22 07:36 | ESPR_ITS ---
<Statement entered by Radha Garcias MD - 02/27/25 17:39> I reviewed above note and agree with findings and plans. I have also personally examined the patient with medicine team and went over assessment and plan with medical team including management retail intern and resident physician. <Statement entered by Amada Jaquez MD - 02/22/25 14:46> Patient seen and examined at bedside. Patient continues to have headache and breakthrough fevers. Patient most likely has aseptic meningitis per CSF panel. Neuro recommended to continue with acyclovir until tomorrow and continue with supportive treatment treat her headache/fevers. Will continue with IV fluids, Toradol, Reglan, Benadryl as needed. Patient states that she feels somewhat better. Anticipate discharge within 24 hours. I discussed with and supervised the management retail intern physician who took care of this patient. I personally saw and examined the patient and discussed the assessment and plan with the entire medicine team, including my attending Dr. Garcias, I agree with most of the assessment and plan as documented below Amada Jaquez M.D. PGY-3 Disclaimer: Despite multiple revisions, due to the dictation software being used, the document bellow may not be free of grammatical errors including phonetic/typographic errors. However, this does not deter from our commitment to providing health care in the patient's best interest in mind. Documentation for date of: 02/22/25 Subjective Subjective Interval history: Ms. Read is a 29 year old female with past medical history of depression, anxiety and hx of pseudoseizures/stress induced convulsive disorder previously on antiseizuremedications but discontinued 2/2 side effects who presented to the ED with 10/10 headache, fever, neck pain and eye sensitivity to light. Patient was admitted for meningitis evaluation and management. 02/22/2025: Patient seen and examined at bedside, she is s/p LP with c/f viral meningitis, She endorses having headache, Neurology evaluated patient and given pt had some improvement of symptoms with acyclovir, ok to continue acyclovir for total of 48 hrs. suspect aseptic viral meningitis and recommend supportive therapy with IV fluids, toradol, reglan, and benadryl. pt has mild nucal rigidity today, able to somewhat flex neck. Exam Vital Signs Temp Pulse Resp BP Pulse Ox O2 Del Method O2 Flow Rate 99.1 F 75 14 94/66 96 Nasal Cannula 2 02/22/25 04:00 02/22/25 06:42 02/22/25 06:42 02/22/25 04:00 02/22/25 06:42 02/22/25 04:00 02/22/25 06:42 Narrative Exam General: no acute distress; A&Ox3 Skin: Warm, dry, intact, no obvious rash. HENT: Positive Nuchal rigitidy & Brudzinski; NCAT, EOMI, not icteric. External ears normal. No rhinorrhea. Moist mucous membranes Cardiovascular: Regular rate and rhythm, no murmur, +S1/S2. Respiratory: Lungs CTAB GI: Soft, nontender, non-distended. No guarding or rebound tenderness. Extremities: no edema, no cyanosis, no clubbing. Extremity pulses present Neuro: No focal deficits observed. Conversant, moving all extremities. No overt cerebellar signs/incoordination. Psychiatric: Cooperative, appropriate affect. Objective Labs 02/22/25 05:15 02/22/25 05:15 Labs: Laboratory Results - last 24 hr 02/21/25 02/21/25 02/21/25 15:00 16:37 17:35 WBC 8.1 RBC 4.48 Hgb 13.6 Hct 39.5 MCV 88 MCH 30.4 MCHC 34.4 RDW Std Deviation 43.2 Plt Count 213 Neut % (Auto) 69 Lymph % (Auto) 25 Henderson % (Auto) 6 Eos % (Auto) 0 Baso % (Auto) 0 Neut # (Auto) 5.5 Lymph # (Auto) 2.0 Henderson # (Auto) 0.5 Eos # (Auto) 0.0 Baso # (Auto) 0.0 Immature Gran # (Auto) 0.01 H Absolute Nucleated RBC 0.00 Immature Gran % 0 Nucleated RBC % 0 ESR Sodium 139 Potassium 3.6 Chloride 104 Carbon Dioxide 21.4 Anion Gap 14 BUN 10 Creatinine 1.0 Estim Creat Clear Calc 73.3 eGFR > 60 BUN/Creatinine Ratio 10 L Glucose 88 Calculated Osmolality 275 Lactic Acid 1.4 Calcium 9.7 Corrected Calcium 9.7 Phosphorus Magnesium Total Bilirubin 0.6 AST 17 ALT < 7 L Alkaline Phosphatase 51 Total Protein 7.3 Albumin 4.9 Globulin 2.4 Albumin/Globulin Ratio 2.0 Amylase 63 Procalcitonin 0.05 HCG, Qual Negative Ur Collection Type Clean Catch Urine Color Yellow Urine Clarity Hazy Urine pH 6.0 Ur Specific Sandy 1.029 Urine Protein 1+ A Urine Glucose (UA) Negative Urine Ketones 4+ A Urine Blood Negative Urine Nitrite Negative Urine Bilirubin Negative Urine Urobilinogen (Auto) Negative Ur Leukocyte Esterase Positive Urine RBC 9 H Urine WBC 13 H Ur Squamous Epith Cells 13 H Urine Bacteria 3+ A Hyaline Casts < 1 Ur Culture Indicated? Contaminated Urine HCG, Qual Negative CSF Appearance CSF Color CSF WBC CSF RBC CSF Cell Count Tube # CSF Mononuclear WBCs CSF Polynuclear WBCs CSF Glucose CSF Total Protein Urine Opiates Screen Negative Urine Fentanyl Screen Negative Ur Barbiturates Screen Negative U Amphetamin/Meth Scrn Negative U Benzodiazepines Scrn Negative U Cocaine Metab Screen Negative U Marijuana (THC) Screen Positive A Group A Strep Rapid Negative 02/21/25 02/22/25 17:36 05:15 WBC 5.7 RBC 3.65 L Hgb 11.1 L D Hct 32.7 L MCV 90 MCH 30.4 MCHC 33.9 RDW Std Deviation 44.4 Plt Count 167 D Neut % (Auto) 30 L Lymph % (Auto) 57 H Henderson % (Auto) 12 Eos % (Auto) 0 Baso % (Auto) 0 Neut # (Auto) 1.7 L Lymph # (Auto) 3.3 Henderson # (Auto) 0.7 Eos # (Auto) 0.0 Baso # (Auto) 0.0 Immature Gran # (Auto) 0.01 H Absolute Nucleated RBC 0.00 Immature Gran % 0 Nucleated RBC % 0 ESR 9 Sodium 141 Potassium 3.9 Chloride 111 H Carbon Dioxide 23.5 Anion Gap 7 BUN 5 L Creatinine 0.9 Estim Creat Clear Calc 81.5 eGFR > 60 BUN/Creatinine Ratio 6 L Glucose 85 Calculated Osmolality 277 Lactic Acid Calcium 7.9 L D Corrected Calcium Phosphorus 2.9 Magnesium 1.6 Total Bilirubin AST ALT Alkaline Phosphatase Total Protein Albumin Globulin Albumin/Globulin Ratio Amylase Procalcitonin HCG, Qual Ur Collection Type Urine Color Urine Clarity Urine pH Ur Specific Sandy Urine Protein Urine Glucose (UA) Urine Ketones Urine Blood Urine Nitrite Urine Bilirubin Urine Urobilinogen (Auto) Ur Leukocyte Esterase Urine RBC Urine WBC Ur Squamous Epith Cells Urine Bacteria Hyaline Casts Ur Culture Indicated? Urine HCG, Qual CSF Appearance Clear CSF Color Colorless CSF WBC 25 CSF RBC 3 CSF Cell Count Tube # Tube # 4 CSF Mononuclear WBCs 84 CSF Polynuclear WBCs 16 CSF Glucose 51 CSF Total Protein 50 H Urine Opiates Screen Urine Fentanyl Screen Ur Barbiturates Screen U Amphetamin/Meth Scrn U Benzodiazepines Scrn U Cocaine Metab Screen U Marijuana (THC) Screen Group A Strep Rapid Quality Measures Quality Measures VTE prophylaxis Assessment & Plan Assessment Current Active Medications: Generic Name Dose Route Start Last Admin Trade Name Freq PRN Reason Stop Dose Admin Acetaminophen 650 mg 02/21/25 20:46 Acetaminophen 325 Mg Tablet PO 03/23/25 20:45 Q6H PRN PAIN SCALE 1-3 (mild Acetaminophen 650 mg 02/21/25 20:46 Acetaminophen 325 Mg Tablet PO 03/23/25 20:45 Q6H PRN Fever >100.4 Hydrocodone Bitart/Acetaminophen 1 tab 02/21/25 20:46 02/22/25 05:28 Hydrocodone/Apap 10/325 Tab PO 02/26/25 20:45 1 tab Q4HR PRN Administration PAIN SCALE 7-10 (Severe Duloxetine HCl 30 mg 02/22/25 09:00 Duloxetine Hcl 30 Mg Capsule PO 03/24/25 08:59 QAM CARISA Gabapentin 300 mg 02/21/25 22:20 02/21/25 22:27 Gabapentin 300 Mg Capsule PO 03/23/25 22:19 300 mg BID CARISA Administration Sodium Chloride 1,000 mls @ 100 mls/hr 02/21/25 20:45 02/21/25 21:07 Ns IV 03/23/25 20:44 100 mls/hr .Q10H CARISA Administration Acyclovir Sodium 667 mg/ 113.34 mls @ 100 mls/hr 02/21/25 22:00 02/22/25 05:32 Sodium Chloride IV 02/28/25 21:59 100 mls/hr Q8HR CARISA Administration Magnesium Sulfate 4 gm in 50 mls @ 12.5 mls/hr 02/22/25 07:23 Magnesium Sulfate Ivpb IV 02/22/25 11:22 X1 ONE Metoclopramide HCl 2.5 mg 02/21/25 22:00 02/22/25 05:29 Metoclopramide Inj 5 Mg/Ml Vial 2 Ml IVP 03/23/25 21:59 2.5 mg Q8HR CARISA Administration Protocol Ondansetron HCl 4 mg 02/21/25 20:46 02/21/25 21:11 Ondansetron Inj 2 Mg/Ml Inj 2 Ml IVP 03/23/25 20:45 4 mg Q6H PRN Administration NAUSEA OR VOMITING Protocol Oxycodone/Acetaminophen 1 tab 02/21/25 20:46 Oxycodone/Apap 5/325 Tablet PO 02/26/25 20:45 Q6H PRN PAIN SCALE 4-6 (Moderate Pantoprazole Sodium 40 mg 02/22/25 09:00 Pantoprazole Inj 40 Mg Vial IVP 03/24/25 08:59 QDAY CARISA Sumatriptan Succinate 50 mg 02/22/25 03:02 Sumatriptan 25 Mg Tablet PO 03/24/25 08:59 QDAY PRN HEADACHE Trazodone HCl 50 mg 02/21/25 22:20 02/21/25 22:27 Trazodone Hcl 50 Mg Tablet PO 03/23/25 22:19 50 mg HS CARISA Administration Plan Ms. Read is a 29 year old female with past medical history of depression, anxiety who presented to the ED with 10/10 headache, fever, neck pain and eye sensitivity to light. Patient was admitted for meningitis evaluation and management. #aseptic viral meningitis suspect viral, less likely bacterial given CSF showing elevated protien and nl glucose. Possibly due to UTI given UA vs tooth infection. Presented with Fever, tachycardia, Positive Nuchal rigidity & Brudzinski, negative Kernig's sign. No white count; LP CSF findings significant only for elevated protein of 50. -neurology consulted appreciate recs. -Started Acyclovir 667 mg IV q8hr per neurology recommendations, (02/21-02/23 last dose at 0600) 48 hour course -neuro reccomends supportive managment with lots of fluids -Blood x2 pending -CSF cultures pending, -continue IVF maint (given 2L NS bolus) #Suspect post LP headache Possibly due to meningitis vs chronic migraines vs post LP headache Patient has history of migraines Given Sumatriptan 50 mg x1 -scheduled sumatriptan 50 mg po qd prn -consider giving reglan and benadryl if headache persists -given oxygen for headache #depression #anxiety home meds of duloxetine 60 mg po qd, trazodone 1 tab qd -resumed home meds Hospital Management: Disposition: Med Surg getting IV acyclovir for 48 hours and supportive management Diet: Regular GI Prophylaxis: protonix Bowel Prophylaxis: n/a DVT Prophylaxis: SCD CODE STATUS: FULL CODE
[2025-02-22] MEDS: Magnesium Sulfate 4 GM Ivpb 4 GM/50 ML BAG IV (08:03)
[2025-02-22] MEDS: GABAPENTIN 300 MG CAPSULE PO ×2 (08:03→21:36)
[2025-02-22] MEDS: DULoxetine HCL 30 MG CAPSULE PO (08:03)
[2025-02-22] MEDS: ONDANSETRON INJ 2 MG/ML INJ 2 ML 4 MG IVP ×3 (10:09→23:16)
--- NOTE | 2025-02-22 10:10 | PC.SS ---
This is 29-year-old, , female who presented to the ED due to suffering from a headache. Patient appeared alert and oriented to self, place and situation. Patient was pleasant. She reported that she resides at home with her , Brock and children. Patient reported being independent with all ADLs, no DME use. Patient assigned her , Brock as her medical surrogate decision maker. Patient's PCP is [facility]. When medically clear, patient will return home; family will provide transportation to return home. [address] address: [address] [place] [id number]
[2025-02-22] MEDS: SODIUM CHLORIDE 0.9% 1000 ML 1,000 ML 100 ML IV (11:08)
[2025-02-22] MEDS: RINGERS LACTATED 1000 ML 1,000 ML 125 ML IV (17:57)
--- NOTE | 2025-02-22 22:23 | EKG_ITS ---
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
[2025-02-23] VITALS: BP 113/66; PULSE 90; RESP 12; TEMP 37.2; O2SAT 97
[2025-02-23] MEDS: RINGERS LACTATED 1000 ML 1,000 ML 125 ML IV (02:02)
[2025-02-23 04:00] VITALS: BP 93/63; PULSE 75; PULSE 88; RESP 12; TEMP 36.8; O2SAT 98
[2025-02-23 05:25] LABS: Basophils # (Auto) 0.0 Thou/mm3 (0.0-0.2); Basophils % (Auto) 1 % (0-2.5); Eosinophils # (Auto) 0.0 Thou/mm3 (0.0-0.5); Eosinophils % (Auto) 0 % (0-10); Hematocrit 33.4 % (36.0-46.0); Hemoglobin 11.4 g/dL (12.0-16.0); Immature Granulocytes Auto 0.01 Thou/mm3 (0.00-0.00); Lymphocytes # (Auto) 4.5 Thou/mm3 (1.0-4.8); Lymphocytes % (Auto) 60 % (10-50); Mean Corpuscular HGB Conc 34.1 g/dl (31.0-37.0); Mean Corpuscular Hemoglobin 30.2 pg (25.0-35.0); Mean Corpuscular Volume 89 fL (80-100); Monocytes # (Auto) 0.6 Thou/mm3 (0.0-0.8); Monocytes % (Auto) 8 % (0-12); Neutrophils # (Auto) 2.3 Thou/mm3 (1.8-7.7); Neutrophils % (Auto) 31 % (37-80); Nucleated Red Blood Cell # 0.00 Thou/mm3 (0.00-0.00); Nucleated Red Blood Cell % 0 /100 WBC (0); Platelet Count 188 Thou/mm3 (140-440); RDW Standard Deviation 43.2 fL (36.4-46.3); Red Blood Count 3.77 Miln/mm3 (4.00-5.20); White Blood Count 7.5 Thou/mm3 (3.6-11.0)
[2025-02-23 05:47] VITALS: BMI 23.7
[2025-02-23] MEDS: ACETAMINOPHEN IVPB 1,000 MG/100 ML VIAL 250 MG IV (05:49)
[2025-02-23] MEDS: METOCLOPRAMIDE INJ 5 MG/ML VIAL 2 ML 2.5 MG IVP (05:49)
[2025-02-23 05:55] LABS: Anion Gap 8 (7-16); BUN/Creatinine Ratio 6 Ratio (12-20); Blood Urea Nitrogen < 5 mg/dL (9-23); Calcium 8.6 mg/dL (8.3-10.6); Carbon Dioxide 26.1 mMol/L (20.0-31.0); Chloride 105 mMol/L (98-107); Creatinine (Component) 0.9 mg/dL (0.6-1.3); Estimated Creatinine Clearance 84.8 mL/min (>60); Glucose 98 mg/dL (74-106); Magnesium 1.8 mg/dL (1.6-2.6); Osmolality,Calculated 274 (275-295); Phosphorous 2.6 mg/dL (2.4-5.1); Potassium 4.1 mMol/L (3.4-5.1); Sodium 139 mMol/L (136-145); eGFR > 60 See Note
[2025-02-23] MEDS: ACYCLOVIR IV (06:20)
[2025-02-23] MEDS: SODIUM CHLORIDE 0.9% IV (06:20)
[2025-02-23 07:07] VITALS: PULSE 76; RESP 18; RESP 96
[2025-02-23] MEDS: Magnesium Sulfate 4 GM Ivpb 4 GM/50 ML BAG IV (07:57)
[2025-02-23 08:00] VITALS: BP 102/62; PULSE 65; PULSE 73; RESP 18; TEMP 36.1; O2SAT 96
[2025-02-23] MEDS: GABAPENTIN 300 MG CAPSULE PO (08:55)
[2025-02-23] MEDS: DULoxetine HCL 30 MG CAPSULE PO (08:55)
--- NOTE | 2025-02-23 10:42 | ESDS_ITS ---
<Statement entered by Radha Garcias MD - 02/27/25 17:40> I reviewed above note and agree with findings and plans. I have also personally examined the patient with medicine team and went over assessment and plan with medical team including technical support intern and resident physician. <Statement entered by Cristina Keller MD - 02/23/25 16:24> Note reviewed, I agree with most of its contents and agree with the patient's care as documented by Dr. Bedoya. The patient's management plan was discussed with my attending physician Dr. Garcias. Cristina Keller, PGY-2 Planned Discharge Date 02/23/25 DS: Providers Provider Date of admission: 02/21/25 21:42 Primary care physician: Physician No Primary/Family Admitting Provider: Marlena Rivas MD Attending Provider on Admission: Marlena Rivas MD Consults: 02/21/25 20:42 Consult to Neurology / Tele-Neurology Routine Comment: ?concern for menignitis Consulting Provider: Aime Jaquez 02/21/25 22:08 Referral Infection Control Routine Comment: Reason for Infection Control Referral: Patient In Isolation Referral Smoking Cessation Counseling Routine Comment: Smoking Cessation Education Needed Attending Provider on DC: Kiley Bedoya MD Discharging Provider: Kiley Bedoya MD DS: Diagnosis Problem List Completed Was Problem List Reviewed/Reconciled?: Yes Hospital Course Hospital Course Hospital course: Hospital Course Ms. Read is a 29 year old female with past medical history of depression, anxiety and hx of pseudoseizures/stress induced convulsive disorder previously on antiseizuremedications but discontinued 2/2 side effects who presented to the ED with 10/10 headache, fever, neck pain and eye sensitivity to light. Patient was admitted for meningitis evaluation and management. LP was performed which showed elevated total proteins, neurology was consulted, dx with aseptic viral meningitis. She was treated with 48 hrs of acyclovir and was noted to have improvement in her symptoms. supportive care was provided for headaches and nausea. Patient stable and medically cleared for discharge. Discharge instructions Resume previous medications. Gradually return to normal activities as tolerated. Stay well hydrated. Monitor for worsening or recurring symptoms such as headache, fatigue, or light sensitivity. Take acetaminophen as needed for any headaches. Take ondansetron tablet as needed to help with nausea. If you do not have PCP, call [facility] at [phone] for an appoi ntment. Diagnoses #Suspect post LP headache #aseptic viral meningitis Plan discussed with Dr. Keller,and Dr. Dieter Bedoya MD PGY1 Time Spent with Patient Time attestation: Total time spent providing and/or coordinating discharge services: Time spent: Greater than 30 minutes Exam Vital Signs Temp Pulse Resp BP Pulse Ox O2 Del Method O2 Flow Rate 96.9 F 65 18 102/62 96 Room Air 2 02/23/25 08:00 02/23/25 08:00 02/23/25 08:00 02/23/25 08:00 02/23/25 08:00 02/23/25 08:00 02/22/25 18:21 Narrative Exam GENERAL: no acute distress, AAO x3, comfortably laying in bed HEENT: Head AT/ NC. Mucous membranes moist. PERRL. NECK: Supple, no lymphadenopathy, no carotid bruits. Able to flex neck with chin to chest without knee flexion CARDIOVASCULAR: RRR. Normal S1/S2, No m/r/g. No pitting edema of bilateral LEs. RESPIRATORY: CTAB. No wheezing, rhonchi, crackles. GASTROINTESTINAL: Abdomen soft, non tender no palpable masses. Bowel sounds present MUSCULOSKELETAL:? No cyanosis or edema, no visible joint swelling. NEUROLOGICAL: CN II-XII grossly intact. No focal deficits. Sensation intact, symmetric. PSYCHIATRIC: Awake and alert, not agitated, normal mood and affect. SKIN: No obvious rashes, no jaundice, normal turgor. Discharge Plan Plan Patient Disposition: HOME (Self Care) Patient condition on transfer: Stable Prescriptions/Referrals Prescriptions/Med Rec: New ondansetron HCl 4 mg tablet 4 mg PO Q8H PRN (Reason: nausea and vomiting) 7 Days Qty: 21 0RF Continued hydroxyzine pamoate 50 mg capsule 1 cap PO TID PRN (Reason: Anxiety) Patient Comments: take 1 capsule by mouth three times a day if needed trazodone 100 mg tablet 50 mg PO HS gabapentin 300 mg capsule 1 cap PO BID Patient Comments: take 1 capsule by mouth BID duloxetine 30 mg capsule,delayed release(DR/EC) 1 cap PO QAM Patient Comments: take 1 capsule by mouth every morning duloxetine 60 mg capsule,delayed release(DR/EC) 60 mg PO DAILY Patient Comments: TAKE 1 CAPSULE BY MOUTH EVERY DAY Referrals: No Primary/Family,Physician [Primary Care Provider] Patient/Caregiver Discharge Instructions Other Discharge Activity Instructions:: Resume previous medications. Gradually return to normal activities as tolerated. Stay well hydrated. Monitor for worsening or recurring symptoms such as headache, fatigue, or light sensitivity. Take acetaminophen as needed for any headaches. Take ondansetron tablet as needed to help with nausea. If you do not have PCP, call [facility] at [phone] for an appointment. Education Materials: Meningitis Print Language: Chinese Stand Alone Forms: Yandy Award Info., Patient Portal Info Letter, Work/Release Restrictions Discharge Order Discharge Orders: Discharge (Routine); Ordered 02/23/25 Ordered By: Cristina Keller Quality Discharge Quality Measures VTE prophylaxis
[2025-02-23 12:00] VITALS: BP 119/74; PULSE 73; PULSE 76; RESP 18; TEMP 36.1; O2SAT 96
== END 2025-02-23 12:40 | disposition home or self-care (01) ==
LOC: SERX 14:56 → SERHOLD 21:04 → S3NX 02-22 08:28 → S2NX 02-22 22:56 → SERHOLD 02-24 05:51 → S3NX 02-24 05:51 → S2NX 02-24 05:51
PROVIDERS: Nurse Practitioner Family; Admitting Provider Student in an Organized Health Care Education/Training Program; Emergency Provider Family Medicine; Visit Provider Student in an Organized Health Care Education/Training Program
DX: A87.9 Viral meningitis, unspecified (principal); F32.A Depression, unspecified; F41.9 Anxiety disorder, unspecified; Z79.899 Other long term (current) drug therapy
CPT/HCPCS: 62270; 36415; 70450; 80048; 80053; 80307; 81001; 81025; 82150; 82945; 83605; 83735; 84100; 84145; 84157; 84703; 85025; 85652; 87040; 87070; 87205; 87400; 87651; 87811; 89051; 93005; 93225; 96361; 96365; 96366; 96375; 96376; 99285; G0378; J0131; J0133; J0696; J1885; J2270; J2405; J2470; J2765; J3475; J3490; J7030; J7050; J7120; Q0162; A9270

== ENCOUNTER 2025-02-26 02:23 | Emergency (ER) | payer MEDICAID, SELFPAY ==
[2025-02-26 02:24] VITALS: BMI 24.4
[2025-02-26 02:31] VITALS: BP 111/82; PULSE 140; RESP 18; TEMP 36.4; O2SAT 96
--- NOTE | 2025-02-26 02:47 | EDRME_ITS ---
Rapid Medical Screening Exam [facility] Arrival date/time: 02/26/25 02:23 29F with history of psych/drug use and recent discharge with aseptic viral meningitis presents to ED with worsening N/V and ARELLANO. Patient states she threw up stool. Chief Complaint: Nausea/Vomiting/Diarrhea Vital signs: Vital Signs Temperature 97.6 F 02/26/25 02:31 Pulse Rate 140 H 02/26/25 02:31 Respiratory Rate 18 02/26/25 02:31 Blood Pressure 111/82 02/26/25 02:31 Pulse Oximetry (%) 96 02/26/25 02:31 Oxygen Delivery Method Room Air 02/26/25 02:31
--- NOTE | 2025-02-26 03:11 | PD.EDNV ---
Nausea/Vomit./Diarrhea-RME/HPI General Chief complaint: Nausea/Vomiting/Diarrhea Stated complaint: VOMITING Time Seen by Provider: 02/26/25 03:04 Arrival date/time: 02/26/25 02:23 RME / HPI RME / HPI Narrative: 02/26/25 02:23 29F with history of psych/drug use and recent discharge with aseptic viral meningitis presents to ED with worsening N/V and ARELLANO. Patient states she threw up stool. -------- Dr. Wright?s Main ED Evaluation: 29yo female with recent history of aseptic viral meningitis presents to the ED for complaints of nausea and vomiting. Patient was discharged from this facility 3 days ago. Patient felt she was able to manage her symptoms at home, but became concerned when she started having dark emesis tonight. Patient reports having a persistent headache and decreased appetite. She has not had a bowel movement since before she was admitted here on 02/21. She denies any other associated symptoms. NKA. Related Data Home Medications ?Medication ?Instructions ?Recorded ?Confirmed duloxetine 30 mg capsule,delayed 1 cap PO QAM 11/17/21 02/21/25 release gabapentin 300 mg capsule 1 cap PO BID 11/17/21 02/21/25 hydroxyzine pamoate 50 mg capsule 1 cap PO TID PRN Anxiety 11/17/21 02/21/25 trazodone 100 mg tablet 50 mg PO HS 11/17/21 02/22/25 duloxetine 60 mg capsule,delayed 60 mg PO DAILY 02/21/25 02/21/25 release Previous Rx's ?Medication ?Instructions ?Recorded ondansetron HCl 4 mg tablet 4 mg PO Q8H PRN nausea and 02/23/25 vomiting 7 days #21 tabs metoclopramide HCl 10 mg tablet 10 mg PO Q6H PRN nausea and 02/26/25 (Reglan) vomiting #30 tabs Allergies Allergy/AdvReac Type Severity Reaction Status Date / Time No Known Allergies Allergy Verified 02/26/25 02:26 Review of Systems Review of Systems Systems Reviewed: All systems reviewed, normal except as documented ED Exam Narrative Physical exam: Generally patient is alert in mild distress secondary to her headache and nausea, heart tachycardic rate with regular rhythm eyes pupils equal round reactive to light lungs clear to auscultation equal bilaterally abdomen soft bowel sounds present also nontender neurologic exam Posey Coma Scale is 15 without focal motor deficit Course Quality Measures none Orders Category Date Time Status Insert IV NOW Care 02/26/25 02:46 Active Alcohol, Blood Medical Stat Lab 02/26/25 02:54 Completed Beta HCG,Quantitative Stat Lab 02/26/25 02:54 Completed CBC Stat Lab 02/26/25 02:54 Completed CMP [Comprehensive Metabolic Panel] Stat Lab 02/26/25 02:54 Completed HCG Qualitative,Urine Stat Lab 02/26/25 03:05 Completed Mag [Magnesium] Stat Lab 02/26/25 02:54 Completed Path Review Blood Smear Stat Lab 02/26/25 02:54 Completed Urinalysis, C/S if Indicated Stat Lab 02/26/25 03:05 Completed DiphenhydrAMINE INJ [Benadryl Inj] Med 02/26/25 02:46 Discontinued 12.5 mg IVP X1 ONE Metoclopramide Inj [Reglan Inj] Med 02/26/25 02:46 Discontinued 10 mg IVP X1 ONE Morphine* Inj Med 02/26/25 03:22 Discontinued 4 mg IVP X1 ONE Sodium Chloride 0.9% 1000 ml [Ns] 1,000 ml Med 02/26/25 02:46 Discontinued IV 999 mls/hr Vital Signs Vital signs: Vital Signs Temperature 97.6 F 02/26/25 02:31 Pulse Rate 140 H 02/26/25 02:31 Respiratory Rate 18 02/26/25 02:31 Blood Pressure 111/82 02/26/25 02:31 Pulse Oximetry (%) 96 02/26/25 02:31 Oxygen Delivery Method Room Air 02/26/25 02:31 Nausea/Vomiting/Diarrhea MDM Narrative MDM Narrative:: Scribe Attestation: 02/26/25 - Shantel Waller am scribing for and in the presence of Dr. Wright. I interpreted all labs. I also investigated the patient's recent hospitalization and discharge 3 days ago. Patient had aseptic viral meningitis. Patient was hydrated with 1 L of IV normal saline and given morphine 4 mg IV and Reglan 10 mg IV here in the emergency room. After hydration the patient's heart rate decreased to the 90s. Patient was told that she will have symptoms of viral meningitis for at least the next 2 weeks. Reglan as prescribed. Clear liquid diet and advance as tolerated. Patient data External records reviewed:: [facility] previous records (Per chart review, patient was admitted here on 02/21/25 for meningitis.) Clinical information provided by:: patient Social determinants that could affect healthcare access:: none Patient has the following chronic illnesses:: aseptic viral meningitis How is presenting disease/condition affected by chronic disease/condition?: caused by Evaluation data The following diagnostics were reviewed and interpreted by me:: lab results Lab and/or radiology exams considered but not ordered:: none Interpretation Summary: See MDM. Medications / Prescriptions Medications / Prescriptions considered but not ordered:: none Medication administrations:: Medication Administration History Discontinued Medications Diphenhydramine HCl (Diphenhydramine Inj 50 Mg/Ml Vial) 12.5 mg IVP X1 ONE Stop: 02/26/25 02:47 Last Admin: 02/26/25 03:51 Dose: Not Given Documented By: LYNN Non-Admin Reason: Discontinued Sodium Chloride (Ns) 1,000 mls @ 999 mls/hr IV .Q1H1M ONE Stop: 02/26/25 03:46 Last Admin: 02/26/25 03:30 Dose: 999 mls/hr Documented By: LYNN Metoclopramide HCl (Metoclopramide Inj 5 Mg/Ml Vial 2 Ml) 10 mg IVP X1 ONE; Protocol Stop: 02/26/25 02:47 Last Admin: 02/26/25 03:30 Dose: 10 mg Documented By: LYNN Morphine Sulfate (Morphine Sulf Inj 4 Mg/Ml Vial) 4 mg IVP X1 ONE Stop: 02/26/25 03:23 Last Admin: 02/26/25 03:40 Dose: 4 mg Documented By: LYNN see above Consultations Consultation(s) initiated? (list below): No Diagnosis Nausea Differential Diagnosis: other (See MDM) Most likely diagnosis given after review of the tests above:: see clinical impression below Admission Indicated Admission indicated?: not indicated Admission Request Was there a request for admission?: No Disposition Plan Disposition Plan: Discharge Discharge Attestation Discharge Attestation: The patient and all family members were given an opportunity to ask questions and understood the discharge instructions. Discharge instructions specifically effects, indications for sooner follow up or return to the emergency department, and the expected course of current diagnosis. Patient condition: Stable Discharge Plan Plan Patient Disposition: HOME (Self Care) Prescriptions/Referrals Prescriptions/Med Rec: New metoclopramide HCl [Reglan] 10 mg tablet 10 mg PO Q6H PRN (Reason: nausea and vomiting) Qty: 30 0RF No Action hydroxyzine pamoate 50 mg capsule 1 cap PO TID PRN (Reason: Anxiety) Patient Comments: take 1 capsule by mouth three times a day if needed trazodone 100 mg tablet 50 mg PO HS gabapentin 300 mg capsule 1 cap PO BID Patient Comments: take 1 capsule by mouth BID duloxetine 30 mg capsule,delayed release(DR/EC) 1 cap PO QAM Patient Comments: take 1 capsule by mouth every morning duloxetine 60 mg capsule,delayed release(DR/EC) 60 mg PO DAILY Patient Comments: TAKE 1 CAPSULE BY MOUTH EVERY DAY ondansetron HCl 4 mg tablet 4 mg PO Q8H PRN (Reason: nausea and vomiting) 7 Days Qty: 21 0RF Referrals: No Primary/Family,Physician [Primary Care Provider] - In 1 week Problem List Clinical Impression: Meningitis, viral Patient/Caregiver Discharge Instructions Education Materials: ED Meningitis, Viral Additional Instructions: You will be sick for the next 2 weeks. Clear liquid diet and advance as tolerated. Reglan as prescribed. Print Language: [place] Stand Alone Forms: Yandy Award Info., Patient Portal Info Letter
[2025-02-26 03:22] LABS: Collection Type, Urine Clean Catch
[2025-02-26 03:23] LABS: Basophils # (Auto) 0.0 Thou/mm3 (0.0-0.2); Basophils % (Auto) 0 % (0-2.5); Eosinophils # (Auto) 0.1 Thou/mm3 (0.0-0.5); Eosinophils % (Auto) 1 % (0-10); Hematocrit 39.7 % (36.0-46.0); Hemoglobin 13.3 g/dL (12.0-16.0); Immature Granulocytes Auto 0.01 Thou/mm3 (0.00-0.00); Lymphocytes # (Auto) 5.6 Thou/mm3 (1.0-4.8); Lymphocytes % (Auto) 59 % (10-50); Mean Corpuscular HGB Conc 33.5 g/dl (31.0-37.0); Mean Corpuscular Hemoglobin 29.4 pg (25.0-35.0); Mean Corpuscular Volume 88 fL (80-100); Monocytes # (Auto) 0.4 Thou/mm3 (0.0-0.8); Monocytes % (Auto) 4 % (0-12); Neutrophils # (Auto) 3.4 Thou/mm3 (1.8-7.7); Neutrophils % (Auto) 36 % (37-80); Nucleated Red Blood Cell # 0.00 Thou/mm3 (0.00-0.00); Nucleated Red Blood Cell % 0 /100 WBC (0); Platelet Count 292 Thou/mm3 (140-440); RDW Standard Deviation 42.4 fL (36.4-46.3); Red Blood Count 4.53 Miln/mm3 (4.00-5.20); White Blood Count 9.5 Thou/mm3 (3.6-11.0)
[2025-02-26] MEDS: METOCLOPRAMIDE INJ 5 MG/ML VIAL 2 ML 10 MG IVP (03:30)
[2025-02-26] MEDS: SODIUM CHLORIDE 0.9% 1000 ML 1,000 ML 999 ML IV (03:30)
[2025-02-26 03:38] LABS: HCG Qualitative,Urine Negative
[2025-02-26] MEDS: MORPHINE SULF INJ 4 MG/ML VIAL IVP (03:40)
[2025-02-26 03:51] LABS: Bilirubin,Urine Negative (Negative); Blood,Urine 3+ (Negative); Clarity,Urine Clear (Clear/Hazy); Color,Urine Yellow (Lt Yel-Yel); Culture Indicated,Urine Not Indicated; Glucose, Urine Negative (Negative); Ketones,Urine Trace (Negative); Leukocyte Esterase,Urine Negative (Negative); Nitrite,Urine Negative (Negative); PH,Urine 6.0 (5.0-7.0); Protein,Urine Trace (Neg - Trace); RBC,Urine 109 /hpf (0-3); Specific Gravity,Urine 1.029 (1.001-1.035); Squamous Epithelial Cell,Urine 1 /hpf (0-5); Urobilinogen,Urine 3.0 mg/dL (0.0-1.0); WBC,Urine 2 /hpf (0-5)
[2025-02-26 03:54] VITALS: BP 91/69; PULSE 74; RESP 19; O2SAT 97
[2025-02-26 04:12] LABS: Alanine Aminotransferase < 7 U/L (10-49); Albumin, Serum 4.7 gm/dL (3.5-5.0); Albumin/Globulin Ratio 2.0 (1.2-2.2); Alcohol, Blood Medical < 3.0 mg/dL (0-10.0); Alkaline Phosphatase 46 U/L (46-116); Anion Gap 11 (7-16); Aspartate Amino Transferase 15 U/L (0-34); BUN/Creatinine Ratio 10 Ratio (12-20); Beta HCG,Quantitative < 1 mIU/mL (<5.0); Bilirubin,Total 0.5 mg/dL (0.3-1.2); Blood Urea Nitrogen 9 mg/dL (9-23); Calcium 9.9 mg/dL (8.3-10.6); Calcium (Corrected) 9.9 mg/dL (8.5-10.1); Carbon Dioxide 24.6 mMol/L (20.0-31.0); Chloride 106 mMol/L (98-107); Creatinine (Component) 0.9 mg/dL (0.6-1.3); Estimated Creatinine Clearance 81.5 mL/min (>60); Globulin 2.4 gm/dL (2.3-3.5); Glucose 121 mg/dL (74-106); Magnesium 1.7 mg/dL (1.6-2.6); Osmolality,Calculated 282 (275-295); Potassium 3.7 mMol/L (3.4-5.1); Sodium 142 mMol/L (136-145); Total Protein 7.1 gm/dL (5.7-8.2); eGFR > 60 See Note
[2025-02-26 04:15] LABS: Path Review Blood Smear Sent to Pathologist
[2025-02-26 04:46] VITALS: BP 111/70; PULSE 81; RESP 18; TEMP 37.1; O2SAT 96
== END 2025-02-26 04:49 | disposition home or self-care (01) ==
PROVIDERS: Physician Assistant; Emergency Provider Emergency Medicine
DX: G03.9 Meningitis, unspecified (principal)
CPT/HCPCS: 36415; 80053; 80320; 81001; 81025; 83735; 84702; 85025; 96361; 96374; 96375; 99283; J2270; J2765; J7030; G0480